=== PATIENT | female | born 1950 | race Caucasian/White ===

== ENCOUNTER → 2017-01-20 | Outpatient (CLI) | payer MEDICARE ==
[~2017-01-20] MED LIST: CALC500T55 PO; LEVO75TA4 PO; LEVO88TA2 PO; LOVA10TA PO; MULT-642 PO
[2017-01-20 08:51] LABS: BASOPHILS % (AUTO) 1 % (0-2); EOSINOPHILS # (AUTO) 0.2 10^3uL; EOSINOPHILS % (AUTO) 4 % (0-4); MEAN CORPUSCULAR HGB CONC 34.8 g/dL (31.0-37.0); MEAN CORPUSCULAR VOLUME 92 FL (80-100); MEAN PLATELET VOLUME 9.1 FL (6.0-9.5); MONOCYTES # (AUTO) 0.4 X10^3; MONOCYTES % (AUTO) 7 % (3-11); NEUTROPHILS % (AUTO) 53 % (51-67); PLATELET COUNT 180 10^3uL (150-450); WHITE BLOOD COUNT 5.55 10^3uL (4.0-11.0)
[2017-01-20 08:59] LABS: MEAN CORPUSCULAR HEMOGLOBIN 31.9 PG (26.0-34.0)
[2017-01-20 09:06] LABS: ALBUMIN 4.1 g/dL (3.4-5.0); ANION GAP 16.1 MEQ/L (3-15); CALCULATED IONIZED CALCIUM 4.2 mg/dL (3.8-4.6); TOTAL PROTEIN 7.2 g/dL (6.4-8.5)
--- NOTE | 2017-01-22 14:58 | Diagnostic Imaging Report ---
EXAMINATION: DIG CHARLEEN BILAT SCREEN W CAD. COMPARISON: 01/15/2016, 01/16/2015, and 01/18/2014. INDICATION: Screening mammography. Personal history of breast cancer on the left. TECHNIQUE: Digital screening mammography was obtained with a computer-aided detection (CAD) system. FINDINGS: The breasts are mostly entirely fatty. No dominant mass, suspicious microcalcifications, or architectural distortion to suggest malignancy in either breast. Surgical changes from lumpectomy in the left upper outer quadrant with associated architectural distortion and extensive dystrophic calcification are unchanged. IMPRESSION: Stable mammogram without evidence of malignancy. Followup screening mammogram in 12 months is recommended. ACR BI-RADS Category 2: Benign findings. Result letter will be mailed to the patient. Note: At least 10% of breast cancer is not imaged by mammography. Dictated by: Dictated on workstation # [id number]
== END ==
LOC: RAD 08:37
PROVIDERS: ATTEND Internal Medicine Hematology & Oncology
DX: Z12.31 Encounter for screening mammogram for malignant neoplasm of breast (principal); Z85.3 Personal history of malignant neoplasm of breast
CPT/HCPCS: 36415; 80053; 85025; 86300; G0202